=== PATIENT | male | born 1995 | race Caucasian/White ===

== ENCOUNTER 2021-04-08 17:17 | Emergency (ER) | payer OTHER ==
[~2021-04-08 17:17] MED LIST: ALLOPURINOL100 MG PO; COLCHICINE0.6 MG PO; DELSYM30 MG/5 ML PO; FLEXERIL 10 MG10 MG PO; FLONASE 0.05% N16 GM; IBUPROFEN600 MG PO; LISINOPRIL20 MG PO; MELATONIN3 MG PO; PREDNISONE 10 M10 MG PO; TORADOL 10 MG T10 MG PO; ULORIC 40 MG TA40 MG PO; ZITHROMAX250 MG PO; ZOFRAN ODT 4 MG4 MG SL; ZOFRAN4 MG PO
[2021-04-08] MEDS ORDERED: NAPROXEN500 MG PO (20:12)
== END 2021-04-08 20:32 | disposition home or self-care (01) ==
LOC: ER1 17:17
DX: S93.601A Unspecified sprain of right foot, initial encounter (principal); F17.210 Nicotine dependence, cigarettes, uncomplicated; Z88.0 Allergy status to penicillin; I10 Essential (primary) hypertension; W01.0XXA Fall on same level from slipping, tripping and stumbling without subsequent striking against object, initial encounter; Y92.830 Public park as the place of occurrence of the external cause
CPT/HCPCS: 73610; 73630; 99283

== ENCOUNTER 2021-05-12 17:01 | Inpatient (IN) | payer OTHER ==
[~2021-05-12] VITALS: Ht 190.5 cm; Wt 199.6 kg
[~2021-05-12 17:01] MED LIST changes: +NAPROXEN500 MG PO
[2021-05-12 18:01] LABS: HEMOGLOBIN 15.1 gm/dl (14.0-17.5); RED BLOOD COUNT 5.09 M/UL (4.20-5.50); WHITE BLOOD COUNT 13.3 K/UL (4.5-11.0)
[2021-05-12 18:50] LABS: BUN/CREATININE RATIO 14 (0-10)
[2021-05-13 07:02] LABS: HEMOGLOBIN 14.7 gm/dl (14.0-17.5); RED BLOOD COUNT 5.04 M/UL (4.20-5.50); WHITE BLOOD COUNT 11.1 K/UL (4.5-11.0)
[2021-05-13 07:20] LABS: BUN/CREATININE RATIO 12 (0-10)
--- NOTE | 2021-05-13 13:09 | NUR ---
STATED THAT PATIENT COULD REMOVE TELEMETRY FOR A SHOWER.
[2021-05-14 06:38] LABS: HEMOGLOBIN 14.3 gm/dl (14.0-17.5); RED BLOOD COUNT 4.95 M/UL (4.20-5.50); WHITE BLOOD COUNT 12.2 K/UL (4.5-11.0)
[2021-05-14 07:43] LABS: BUN/CREATININE RATIO 10 (0-10)
[2021-05-15 03:56] LABS: HEMOGLOBIN 13.6 gm/dl (14.0-17.5); RED BLOOD COUNT 4.68 M/UL (4.20-5.50); WHITE BLOOD COUNT 11.1 K/UL (4.5-11.0)
[2021-05-15 04:55] LABS: BUN/CREATININE RATIO 10 (0-10)
== END 2021-05-17 15:03 | disposition home or self-care (01) | DRG 417 ==
LOC: ER1 17:01 → CDU 21:37 → MED SURG 4 21:37
PROVIDERS: Emergency Medicine; ADMIT Internal Medicine
PROC: 0FT44ZZ Resection of Gallbladder, Percutaneous Endoscopic Approach (ICD-10-PCS; principal; 2021-05-12)
DX: K85.10 Biliary acute pancreatitis without necrosis or infection (principal); K83.1 Obstruction of bile duct; Z68.43 Body mass index [BMI] 50.0-59.9, adult; K76.0 Fatty (change of) liver, not elsewhere classified; E66.01 Morbid (severe) obesity due to excess calories; E78.5 Hyperlipidemia, unspecified; Z20.822 Contact with and (suspected) exposure to COVID-19; I10 Essential (primary) hypertension; K85.80 Other acute pancreatitis without necrosis or infection; F10.10 Alcohol abuse, uncomplicated; M10.9 Gout, unspecified; F17.220 Nicotine dependence, chewing tobacco, uncomplicated; Z83.3 Family history of diabetes mellitus; Z88.0 Allergy status to penicillin; Z91.19 Patient's noncompliance with other medical treatment and regimen
CPT/HCPCS: 36415; 76705; 80053; 80061; 82550; 82553; 83690; 83874; 84484; 85025; 85027; 93005; 96374; 96375; 96376; 99285; G0480; J0690; J1100; J1170; J1650; J1885; J2001; J2250; J2270; J2405; J2704; J2710; J3010; J7030; J7120; Q9967; U0002